=== PATIENT | female | born 1995 | race Caucasian/White ===

== ENCOUNTER 2021-09-18 10:34 | Emergency (ER) | payer OTHER ==
[2021-09-18 11:57] LABS: BILIRUBIN NEGATIVE (NEGATIVE); BLOOD NEGATIVE Ery/uL (NEGATIVE); CLARITY HAZY (CLEAR); COLOR YELLOW (YELLOW); GLUCOSE (U) NORMAL (NORMAL); LEUKOCYTES 1+ Leu/uL (NEGATIVE); NITRITE NEGATIVE (NEGATIVE); PROTEIN NEGATIVE (NEGATIVE); SPECIFIC GRAVITY 1.025 (1.001-1.030); UROBILINOGEN 0.2 mg/dL (0.2-1.0); pH 6.5 (5.0-9.0)
[2021-09-18 12:12] LABS: BACTERIA 4+; SQUAMOUS EPITHELIAL CELLS 20-50
[2021-09-18 12:32] LABS: BASOPHIL 0.3 % (0-2); HGB 12.9 g/dl (12.5-16.0); LYMPHOCYTE 24.4 % (15-48); MCH 27.7 pg (25.0-31.0); MCHC 33.1 g/dL (32.0-36.0); MCV 83.9 fL (78.0-100.0); MONOCYTE 8.5 % (0-12); MPV 11.3 fL (6.0-9.5); NEUTROPHIL 64.5 % (41-80); NRBC 0; PLT 225 K/uL (150-400); RBC 4.65 M/uL (4.20-5.40); RDW 11.7 % (11.5-14.0); WBC 6.9 K/uL (4.0-10.5)
[2021-09-18 12:41] LABS: ALBUMIN 3.7 g/dL (3.4-5.0); BILIRUBIN - TOTAL 0.4 mg/dL (0.2-1.0); BUN/CREAT RATIO (CALC) 12.1 RATIO; CREATININE 0.66 mg/dL (0.51-0.95); GLOBULIN (CALCULATION) 3.7 g/dL; TOTAL PROTEIN 7.4 g/dL (6.4-8.2)
[2021-09-18] MEDS ORDERED: DICLEGIS DR 101 EACH PO (13:58)
[2021-09-18] MEDS ORDERED: CEPHALEXIN500 MG PO (13:58)
[2021-09-18] MEDS ORDERED: ONDANSETRON ODT4 MG PO (13:58)
== END 2021-09-18 14:07 | disposition home or self-care (01) ==
LOC: FER 10:34
PROVIDERS: Emergency Medicine
DX: O20.9 Hemorrhage in early pregnancy, unspecified (principal); O99.891 Other specified diseases and conditions complicating pregnancy; R82.71 Bacteriuria; Z3A.08 8 weeks gestation of pregnancy
CPT/HCPCS: 36415; 76801; 80053; 81001; 84702; 85025; 86900; 86901